=== PATIENT | female | born 1970 | race African-American/Black ===

== ENCOUNTER 2016-09-29 10:10 | Emergency (ER) | payer MEDICARE, MEDICAID ==
[~2016-09-29] VITALS: Ht 162.6 cm; Wt 85.3 kg
[~2016-09-29 10:10] MED LIST: ALBUTEROL SULF8.5 GM INH; ALBUTEROL2.5 MG/3 M HHN; ALBUTEROL2.5 MG/3 M INH; ATROVENT500 MCG/2. HHN; DUONEB 0.5 MG-33 ML IH; FLOVENT2 PUFFS INH; GUAIFENESIN-CO118 M1 ORAL; LEVAQUIN750 MG ORAL; NORCO 5-325 TA1 EACH ORAL; NORCO 5-325 TA1 EACH PO; PREDNISONE20 MG ORAL; PREDNISONE20 MG PO; TYLENOL #31 TAB PO; VICODIN 5-5001 EACH PO; ZITHROMAX250 MG ORAL
[2016-09-29 10:33] VITALS: BP 101/67
[2016-09-29] MEDS ORDERED: Albuterol ud Inhalation HHN ONE ×2 (11:30→12:15)
[2016-09-29] MEDS ORDERED: Acetaminophen 500mg (ES) tab PO ONE (11:30)
[2016-09-29] MEDS ORDERED: Ipratropium 0.02% Inh Soln 2.5ml UD HHN ONE ×2 (11:30→12:15)
[2016-09-29] MEDS ORDERED: PredniSONE 20mg tab ORAL ONE (11:30)
[2016-09-29] MEDS ORDERED: ALBUTEROL SULF8.5 GM INH (12:51)
[2016-09-29] MEDS ORDERED: TRAMADOL HCL50 MG ORAL (12:51)
[2016-09-29] MEDS ORDERED: ALBUTEROL2.5 MG/3 M HHN (12:51)
[2016-09-29] MEDS ORDERED: PREDNISONE20 MG ORAL (12:51)
[2016-09-29 12:57] VITALS: BP 115/75
[2016-09-29] MEDS ORDERED: PROMETHAZINE-C118 M1 ORAL (13:02)
--- NOTE | 2016-09-29 13:09 | Diagnostic Imaging Report ---
Indication: Pain 3 views of the left knee were obtained. Findings: There is minimal joint space narrowing in the medial compartment. Alignment is normal. No joint effusion seen. Impression: Minimal osteoarthritis
--- NOTE | 2016-09-29 15:47 | Emergency Room Report ---
History of Present Illness General Chief Complaint: Upper Respiratory Illness Source: Patient Present Illness HPI 45-year-old female presents ED complaining of cough and wheezing x3 days. Notes history of asthma. Notes cough is dry. Denies fevers or chills. Denies sick contacts or recent travel. States she's been using her inhaler without significant relief. Patient also complaining of bilateral knee pain. Right worse than left. Patient has had this pain for many years now. Was told she has arthritis. Currently not taking any medications. Denies any recent trauma. Pain is a 7/10, throbbing, nonradiating. No other aggravating relieving factors. Denies any other associated symptoms Allergies: Coded Allergies: No Known Allergies (Verified , 10/26/10) Patient History Past Medical History: asthma Past Surgical History: none Pertinent Family History: none Social History: Denies: alcohol use, drug use, smoking Last Menstrual Period: 09/08/16 Now: No Immunizations: UTD Reviewed Nursing Documentation: PMH: Agreed, PSxH: Agreed Nursing Documentation-PMH Past Medical History: No History, Except For Hx Hypertension: No Hx Pacemaker: No Hx Asthma: Yes Hx COPD: No Hx Diabetes: No Hx Cancer: No Hx Gastrointestinal Problems: No Hx Dialysis: No Hx Neurological Problems: No Hx Cerebrovascular Accident: No Hx Seizures: No Hx Vertigo: Yes Hx Headaches: Yes Hx Weakness: Yes Hx Fatigue: Yes Review of Systems All Other Systems: negative except mentioned in HPI Physical Exam Vital Signs Date Time Temp Pulse Resp B/P Pulse Ox O2 Delivery O2 Flow Rate FiO2 09/29/16 10:16 97.5 77 16 101/67 95 09/29/16 11:26 Room Air Sp02 EP Interpretation: reviewed, normal General Appearance: no apparent distress, alert, GCS 15, non-toxic Head: normocephalic, atraumatic Eyes: bilateral eye PERRL, bilateral eye normal inspection ENT: hearing grossly normal, normal pharynx, no angioedema, normal voice Neck: full range of motion, supple/symm/no masses Respiratory: chest non-tender, normal breath sounds, speaking full sentences, wheezing Cardiovascular #1: regular rate, rhythm, no edema Cardiovascular #2: 2+ carotid (R), 2+ carotid (L), 2+ radial (R), 2+ radial (L) , 2+ dorsalis pedis (R), 2+ dorsalis pedis (L) Gastrointestinal: normal bowel sounds, non tender, soft, non-distended, no guarding, no rebound Rectal: deferred Genitourinary: normal inspection, no CVA tenderness Musculoskeletal: back normal, gait/station normal, normal range of motion, tender - bilateral knees. full ROM noted Neurologic: alert, oriented x3, responsive, motor strength/tone normal, sensory intact, speech normal Psychiatric: judgement/insight normal, memory normal, mood/affect normal, no suicidal/homicidal ideation Reflexes: 3+ bicep (R), 3+ bicep (L), 3+ tricep (R), 3+ tricep (L), 3+ knee (R) , 3+ knee (L) Skin: normal color, no rash, warm/dry, well hydrated Lymphatic: no adenopathy Medical Decision Making Diagnostic Impression: Primary Impression: Knee pain Additional Impression: Cough variant asthma ER Course Hospital Course 45-year-old female presents to ED complaining of cough, wheezing. c/o knee pain Differential diagnoses include: URI, bronchitis, asthma/COPD, pneumonia Clinical course Patient placed on stretcher. After initial history and physical I ordered prednisone and nebulizer treatment. I ordered pain medications and x-rays of bilateral knees X-ray show no acute fracture or or process however there is significant joint space narrowing and osteoarthritis noted in both knees Upon reassessment patient states cough and symptoms have improved. Diagnosis - cough variant asthma, knee pain Stable and discharged home with prescriptions for Rx prednisone, tramadol, albuterol, cough syrup. Instructed to followup with PMD. Return to ED if symptoms recur or worsen Other X-Ray Diagnostic Results Other X-Ray Diagnostic Results : X-Ray Ordered: R knee, L knee EP Interpretation: Yes Findings: no fractures, no dislocation, no soft tissue swelling Number of Views: 3 Other Impression Right knee-No fracture, no dislocation, no soft tissue swelling, osteoarthritis Left knee-No fracture, no dislocation, no soft tissue swelling, osteoarthritis Last Vital Signs Date Time Temp Pulse Resp B/P Pulse Ox O2 Delivery O2 Flow Rate FiO2 09/29/16 12:57 97.5 81 16 115/75 95 Room Air Status: improved Disposition: HOME, SELF-CARE Condition: Stable Scripts Codeine/Promethazine Hcl* (PROMETHAZINE-CODEINE SYRUP*) 118 Ml Syrup 5 ML ORAL Q4H Y for For Cough, #118 ML 0 Refills Prov: MALCOLM AMIN M.D. 09/29/16 Tramadol Hcl* (ULTRAM*) 50 Mg Tablet 50 MG ORAL Q6H Y for For Pain, #30 TAB 0 Refills Prov: MALCOLM AMIN M.D. 09/29/16 Prednisone* (PREDNISONE*) 20 Mg Tablet 40 MG ORAL DAILY, #10 TAB Prov: MALCOLM AMIN M.D. 09/29/16 Albuterol Sulfate* (ALBUTEROL SULFATE HHN*) 2.5 Mg/3 Ml Vial.neb 2.5 MG HHN Q4H Y for Shortness of Breath, #25 VIAL Prov: MALCOLM AMIN M.D. 09/29/16 Albuterol Sulfate* (ALBUTEROL SULFATE MDI*) 8.5 Gm Hfa.aer.ad 2 PUFF INH Q4H Y for cough/wheezing, #1 EA 0 Refills Prov: MALCOLM AMIN M.D. 09/29/16 Patient Instructions: Asthma, Adult, [id number] MALCOLM AMIN M.D. September 29, 2016 15:47
--- NOTE | 2016-09-30 16:36 | Diagnostic Imaging Report ---
Indication: Pain 3 views of the right knee were obtained. Findings: No definite fracture is identified. There is narrowing of the joint space with marginal spurs. There maybe a small joint effusion. Impression: Osteoarthritis
== END 2016-09-29 13:06 | disposition home or self-care (01) ==
LOC: EMR 10:56
DX: M17.0 Bilateral primary osteoarthritis of knee (principal); J45.909 Unspecified asthma, uncomplicated; R05 Cough
CPT/HCPCS: 94640; 99284

== ENCOUNTER 2017-04-21 11:11 | Inpatient (IN) | payer MEDICARE, MEDICAID ==
[~2017-04-21] VITALS: Ht 160 cm; Wt 81.6 kg
[~2017-04-21 11:11] MED LIST changes: +PROMETHAZINE-C118 M1 ORAL; +TRAMADOL HCL50 MG ORAL
[2017-04-21 11:27] VITALS: BP 131/91
[2017-04-21] MEDS: Albuterol ud Inhalation HHN SCH ×3 (11:44→12:26)
[2017-04-21] MEDS ORDERED: Ipratropium 0.02% Inh Soln 2.5ml UD HHN ONE (11:45)
[2017-04-21 12:37] LABS: BASOPHILS % (AUTO) 0.7 % (0.0-2.0); EOSINOPHILS % (AUTO) 2.7 % (0.0-3.0); LYMPHOCYTES % (AUTO) 15.7 % (20.0-45.0); MEAN CORPUSCULAR HEMOGLOBIN 30.1 PG (27.0-31.0); MEAN CORPUSCULAR HGB CONC 32.7 G/DL (32.0-36.0); MEAN CORPUSCULAR VOLUME 92 FL (80-99); MEAN PLATELET VOLUME 6.4 FL (6.5-10.1); MONOCYTES % (AUTO) 6.1 % (1.0-10.0); NEUTROPHILS % (AUTO) 74.8 % (45.0-75.0); PLATELET COUNT 515 K/UL (150-450); RED CELL DISTRIBUTION WIDTH 12.9 % (11.6-14.8); WHITE BLOOD COUNT 17.4 K/UL (4.8-10.8)
[2017-04-21 12:40] LABS: INR 0.9 (0.9-1.1); PROTHROMBIN TIME 9.4 SEC (9.30-11.50)
[2017-04-21 12:41] LABS: ANION GAP 7 mmol/L (5-15); CALCIUM 9.3 MG/DL (8.5-10.1); CARBON DIOXIDE 28 MMOL/L (21-32); CHLORIDE 105 MMOL/L (98-107); CREATININE 0.8 MG/DL (0.55-1.30); GLOMERULAR FILTRATION RATE > 60 mL/min (>60); POTASSIUM 3.8 MMOL/L (3.5-5.1); SODIUM 139 MMOL/L (136-145)
[2017-04-21 12:47] LABS: ALANINE AMINOTRANSFERASE 24 U/L (12-78); ALBUMIN/GLOBULIN RATIO 0.9 (1.0-2.7); ASPARTATE AMINO TRANSFERASE 17 U/L (15-37); TOTAL PROTEIN 7.8 G/DL (6.4-8.2)
[2017-04-21 13:20] VITALS: BP 126/75
[2017-04-21 13:30] LABS: APPEARANCE,URINE CLEAR; KETONES,URINE NEGATIVE (NEGATIVE); LEUKOCYTE ESTERASE ,URINE NEGATIVE (NEGATIVE); NITRITE,URINE NEGATIVE (NEGATIVE); PH,URINE 6 (4.5-8.0); PROTEIN,URINE NEGATIVE (NEGATIVE); UROBILINOGEN,URINE NORMAL MG/DL (0.0-1.0)
[2017-04-21] MEDS ORDERED: Azithromycin 500 MG in D5W 275 ML IVPB ONE (13:30)
--- NOTE | 2017-04-21 13:38 | Emergency Room Report ---
History of Present Illness General Chief Complaint: Dyspnea/Respdistress Source: Patient Present Illness HPI Patient presents with severe wheezing. She's run out of her inhaler at home. The patient has a history of asthma. She's not taking prednisone at this time. She's felt weak and feverish. There's some chest pain with coughing. some productive phlegm. This is a severe attack, but not her worst. Never intubated. Denies pain to RN, states pain is 4/10 to me, somewhat pleuritic. No NVD. No dysuria. No calf pain, edema. No rashes. Some headache with cough. Prior smoker, denies at this time. Last admitted 05/12/14 for similar presentation (transferred to [place]). Allergies: Coded Allergies: No Known Allergies (Verified , 10/26/10) Patient History Past Medical History: see triage record Social History: Reports: smoking - prior, alcohol use, Denies: drug use - see tox Social History Narrative at home Reviewed Nursing Documentation: PMH: Agreed, PSxH: Agreed Nursing Documentation-PMH Hx Cardiac Problems: No Hx Hypertension: No Hx Pacemaker: No Hx Asthma: Yes Hx COPD: No Hx Diabetes: No Hx Cancer: No Hx Gastrointestinal Problems: No Hx Dialysis: No History Of Psychiatric Problem: No Hx Neurological Problems: No Hx Cerebrovascular Accident: No Hx Seizures: No Hx Vertigo: Yes Hx Headaches: Yes Hx Weakness: Yes Hx Fatigue: Yes Review of Systems All Other Systems: negative except mentioned in HPI Physical Exam Vital Signs Date Time Temp Pulse Resp B/P (MAP) Pulse Ox O2 Delivery O2 Flow Rate FiO2 04/21/17 11:21 98.1 108 24 131/91 97 Room Air 04/21/17 11:46 21 Sp02 EP Interpretation: reviewed, normal General Appearance: alert, GCS 15, mild distress Head: normocephalic Eyes: bilateral eye normal inspection, bilateral eye PERRL ENT: moist mucus membranes Neck: supple Respiratory: wheezing, expiration, inspiration - worse on R Cardiovascular #1: regular rate, rhythm, no edema Cardiovascular #2: 2+ radial (R) Gastrointestinal: normal inspection, normal bowel sounds, non tender, no mass, non-distended Musculoskeletal: back normal, gait/station normal, normal range of motion, no calf tenderness Neurologic: alert, oriented x3 Psychiatric: depressed affect Skin: normal inspection, warm/dry Medical Decision Making Diagnostic Impression: Primary Impression: Asthma with status asthmaticus Additional Impression: Exposure to cocaine ER Course Patient with mild respiratory distress with h/o asthma. Ddx: pna, asthma, pneumo, bronchitis amongst others. Exam against PE. Emergent evaluation with CXR, EKG and labs. Treatment with solumedrol and beta agents. Consider abx based on results. CXR no infiltrate. Elevated WBC. EKG not injury. Labs significant for + tox for cocaine. Still with wheezing after aggressive tx. Admit teleDr. Watkins. Patient denies drugs. States possibly exposed several days ago. Still wheezing, but improved. Unable to break bronchospasm. She requests rest from breathing treatments. Laboratory Tests Test 04/21/17 11:50 04/21/17 13:15 White Blood Count 17.4 K/UL (4.8-10.8) H Red Blood Count 4.60 M/UL (4.20-5.40) Hemoglobin 13.9 G/DL (12.0-16.0) Hematocrit 42.5 % (37.0-47.0) Mean Corpuscular Volume 92 FL (80-99) Mean Corpuscular Hemoglobin 30.1 PG (27.0-31.0) Mean Corpuscular Hemoglobin Concent 32.7 G/DL (32.0-36.0) Red Cell Distribution Width 12.9 % (11.6-14.8) Platelet Count 515 K/UL (150-450) H Mean Platelet Volume 6.4 FL (6.5-10.1) L Neutrophils (%) (Auto) 74.8 % (45.0-75.0) Lymphocytes (%) (Auto) 15.7 % (20.0-45.0) L Monocytes (%) (Auto) 6.1 % (1.0-10.0) Eosinophils (%) (Auto) 2.7 % (0.0-3.0) Basophils (%) (Auto) 0.7 % (0.0-2.0) Prothrombin Time 9.4 SEC (9.30-11.50) Prothrombin Time INR 0.9 (0.9-1.1) PTT 30 SEC (23-33) Sodium Level 139 MMOL/L (136-145) Potassium Level 3.8 MMOL/L (3.5-5.1) Chloride Level 105 MMOL/L (98-107) Carbon Dioxide Level 28 MMOL/L (21-32) Anion Gap 7 mmol/L (5-15) Blood Urea Nitrogen 10 mg/dL (7-18) Creatinine 0.8 MG/DL (0.55-1.30) Estimate Glomerular Filtration Rate > 60 mL/min (>60) Glucose Level 114 MG/DL (74-106) H Calcium Level 9.3 MG/DL (8.5-10.1) Total Bilirubin 0.1 MG/DL (0.2-1.0) L Aspartate Amino Transferase (AST) 17 U/L (15-37) Alanine Aminotransferase (ALT) 24 U/L (12-78) Alkaline Phosphatase 97 U/L (46-116) Troponin I 0.000 ng/mL (0.000-0.056) Total Protein 7.8 G/DL (6.4-8.2) Albumin 3.7 G/DL (3.4-5.0) Globulin 4.1 g/dL Albumin/Globulin Ratio 0.9 (1.0-2.7) L Urine Color Pale yellow Urine Appearance Clear Urine pH 6 (4.5-8.0) Urine Specific [place] 1.020 (1.005-1.035) Urine Protein Negative (NEGATIVE) Urine Glucose (UA) Negative (NEGATIVE) Urine Ketones Negative (NEGATIVE) Urine Occult Blood Negative (NEGATIVE) Urine Nitrite Negative (NEGATIVE) Urine Bilirubin Negative (NEGATIVE) Urine Urobilinogen Normal MG/DL (0.0-1.0) Urine Leukocyte Esterase Negative (NEGATIVE) Urine Opiates Screen Negative (NEGATIVE) Urine Barbiturates Screen Negative (NEGATIVE) Phencyclidine (PCP) Screen Negative (NEGATIVE) Urine Amphetamines Screen Negative (NEGATIVE) Urine Benzodiazepines Screen Negative (NEGATIVE) Urine Cocaine Screen Positive (NEGATIVE) H Urine Marijuana (THC) Screen Negative (NEGATIVE) Microbiology Date/Time Source Procedure Growth Status 04/21/17 11:50 Nasal Nares Influenza Types A,B Antigen (MATA) - Final Complete EKG Diagnostic Results Rate: normal Rhythm: NSR ST Segments: no acute changes Rhythm Strip Diag. Results EP Interpretation: yes Rhythm: NSR, no PVC's, no ectopy Chest X-Ray Diagnostic Results Chest X-Ray Diagnostic Results : Chest X-Ray Ordered: Yes # of Views/Limited/Complete: 1 View Indication: Chest Pain Interpretation: no consolidation, no effusion, no pneumothorax, no acute cardiopulmonary disease Impression: Other Electronically Signed by: Electronically signed by Sheng Brewer MD Last Vital Signs Date Time Temp Pulse Resp B/P (MAP) Pulse Ox O2 Delivery O2 Flow Rate FiO2 04/21/17 21:29 84 18 Room Air 21 04/21/17 17:18 99 04/21/17 17:08 2.0 04/21/17 15:45 97.8 110/66 Status: improved Disposition: ADMITTED INPATIENT Condition: Serious Referrals: NON PHYSICIAN (PCP) Sheng Brewer M.D. Apr 21, 2017 13:37
[2017-04-21] MEDS ORDERED: Azithromycin 500mg Inj IV ONE (13:42)
--- NOTE | 2017-04-21 13:54 | Diagnostic Imaging Report ---
Indication: Dyspnea Technique: XRAY Chest 1v Comparison: 05/12/2014 Findings: Heart size and mediastinal contours are within normal limits given technique. Question mild peribronchial thickening. There is no focal consolidation, pneumothorax or pleural effusion. Osseous structures demonstrate no acute abnormality. Impression: Question mild peribronchial thickening, a finding which may be reflective of reactive/small airway disease. Correlate clinically. No focal consolidation, pleural effusion or pneumothorax.
[2017-04-21] MEDS ORDERED: Ketorolac 30mg Inj IV PRN (15:00)
[2017-04-21] MEDS ORDERED: Morphine Sulfate 2mg/ml Inj IVP PRN (15:00)
[2017-04-21] MEDS ORDERED: Promethazine/Codeine 5ml UD ORAL PRN (15:00)
[2017-04-21] MEDS ORDERED: LORazepam Inj 2mg/ml 1ml IV PRN (15:00)
[2017-04-21] MEDS ORDERED: Nitroglycerin Subl 0.4mg tab SL PRN (15:15)
[2017-04-21] MEDS ORDERED: ALBUTEROL2.5 MG/3 M INH (15:19)
[2017-04-21 15:45] VITALS: BP 110/66
[2017-04-21] MEDS: Albuterol/Ipratropium 3ml neb HHN PRN (17:10)
[2017-04-21] MEDS: Piperacillin/Tazobactam 3.375 GM in D5W 55 ML IVPB SCH (18:00)
[2017-04-21] MEDS: Solu-MEDROL 125mg Inj IV SCH (18:00)
--- NOTE | 2017-04-21 20:13 | Consultation ---
History of Present Illness General Date patient seen: Apr 21, 2017 Chief Complaint: Dyspnea/Respdistress Reason for Consultation: Shortness of breath Present Illness HPI 46 yo gentle lady with pmhx asthma presents to [facility] with complaints of difficulty breathing, acute wheezing and cough. When asked about any precipitating factors, the patient admits that earlier in the day she was with friends at a "hookah bar", where she engaged in tobacco somiking. The patient states that she went home and later that day began feeling acutely short of breath and having uncontrollable fits of constant un-relenting coughing. The patient also admits to having yellowish sputum production with her cough. No comlaints of fever or chills, no complaint of recent illness. The patient says she tried using her rescue inhaler during her respiratory distress but it was not working for her breathing. I was asked to consult on this case from pulmonary point of view, at this time recommendations include systemic corticosteroids for an apparent severe asthmatic reactive airway process, breathing treatments as needed for SOB and anti-tussives for cough. Allergies: Coded Allergies: No Known Allergies (Verified , 10/26/10) Medication History Scheduled Acetaminophen/Codeine 300MG/30MG* (Tylenol #3*), 1-2 TAB PO Q4H Albuterol Sulfate* (Albuterol Sulfate Mdi*), 2 PUFF INH Q4H Albuterol Sulfate* (Albuterol Sulfate Hhn*), 2.5 MG HHN Q4H Azithromycin* (Zithromax*), 250 MG ORAL DAILY Azithromycin* (Zithromax*), 250 MG ORAL DAILY Fluticasone Propionate (Flovent Hfa), 2 PUFFS INH TWICE A DAY Guaifenesin/Codeine Phos* (Robitussin Ac*), 5 ML ORAL Q6H Hydrocodone Bit/Acetaminophen 5-325* ([place] 5-325*), 1 TAB ORAL Q6H Hydrocodone/Acetaminophen 5-500 (Vicodin 5-500), 1 TAB PO Q8H Ipratropium/Albuterol Sulfate (Duoneb 0.5 Mg-3 Mg/3 Ml Soln), 3 ML IH Q6HR Methylprednisolone* (Medrol*), 4 MG ORAL DAILY Prednisone* (Prednisone*), 20 MG PO DAILY, (Reported) Prednisone* (Prednisone*), 40 MG ORAL DAILY Prednisone* (Prednisone*), 40 MG ORAL DAILY Prednisone* (Prednisone*), 60 MG ORAL DAILY Prednisone* (Prednisone*), 40 MG ORAL DAILY Scheduled PRN Albuterol Sulfate* (Albuterol Sulfate Mdi*), 2 PUFF INH Q6H PRN for asthma Albuterol Sulfate* (Albuterol Sulfate Hhn*), 3 ML INH Q4H PRN for Shortness of Breath Albuterol Sulfate* (Albuterol Sulfate Mdi*), 2 PUFF INH Q4H PRN for cough/ wheezing Albuterol Sulfate* (Albuterol Sulfate Hhn*), 2.5 MG HHN Q4H PRN for Shortness of Breath Codeine/Promethazine Hcl* (Promethazine-Codeine Syrup*), 5 ML ORAL Q4H PRN for For Cough Guaifenesin/Codeine Phosphate (Guaifenesin-Codeine Liquid), 5 ML ORAL Q6H PRN Tramadol Hcl* (Ultram*), 50 MG ORAL Q6H PRN for For Pain Miscellaneous Medications Albuterol Sulfate* (Albuterol Sulfate Hhn*), 0 INH, (Reported) Patient History Healthcare decision maker N Resuscitation status Advanced Directive on File Past Medical/Surgical History Past Medical/Surgical History: (1) Community acquired pneumonia (2) Exacerbation of asthma (3) Tobacco user (4) Bronchitis (5) Community acquired pneumonia (6) tobacco dependence (7) Asthma with status asthmaticus (8) Respiratory distress (9) Cough variant asthma (10) Knee pain (11) Asthma with status asthmaticus Review of Systems Constitutional: Reports: malaise Respiratory: Reports: shortness of breath, wheezing, sputum Physical Exam General Appearance: moderate distress Lines, tubes and drains: peripheral HEENT: normocephalic, atraumatic, anicteric, PERRL Neck: non-tender, normal alignment, supple, normal inspection Respiratory/Chest: chest wall non-tender, respiratory distress, decreased breath sounds, expiratory wheezing, inspiratory wheezing Breasts: no masses Cardiovascular/Chest: normal peripheral pulses, normal rate, regular rhythm, no JVD Abdomen: normal bowel sounds, non tender, soft, no organomegaly, no mass Genitourinary/Rectal: normal genital exam, normal rectal exam Extremities: normal range of motion, non-tender, normal inspection, no calf tenderness, normal capillary refill, non-pitting Skin Exam: normal pigmentation, warm/dry Neurologic: web master II-XII grossly normal, no motor/sensory deficits Last 24 Hour Vital Signs Date Time Temp Pulse Resp B/P (MAP) Pulse Ox O2 Delivery O2 Flow Rate FiO2 04/21/17 17:18 84 18 99 Room Air 21 04/21/17 17:08 86 18 99 Nasal Cannula 2.0 28 04/21/17 17:08 28 04/21/17 15:45 97.8 95 23 110/66 95 Room Air 04/21/17 15:45 98.1 95 23 110/66 95 Room Air 04/21/17 13:20 96 19 126/75 94 Room Air 04/21/17 13:06 98.1 04/21/17 12:20 99 18 99 Room Air 21 04/21/17 11:46 21 04/21/17 11:46 103 24 Room Air 21 04/21/17 11:46 103 20 99 Room Air 21 04/21/17 11:27 98.1 103 22 131/91 96 Room Air 04/21/17 11:27 108 24 Room Air 04/21/17 11:21 98.1 108 24 131/91 97 Room Air Intake and Output 04/21/17 04/22/17 19:00 07:00 Intake Total 1375 ml Balance 1375 ml Intake IV Total 1375 ml # Voids 1 Laboratory Tests Test 04/21/17 11:50 04/21/17 13:15 White Blood Count 17.4 K/UL (4.8-10.8) H Red Blood Count 4.60 M/UL (4.20-5.40) Hemoglobin 13.9 G/DL (12.0-16.0) Hematocrit 42.5 % (37.0-47.0) Mean Corpuscular Volume 92 FL (80-99) Mean Corpuscular Hemoglobin 30.1 PG (27.0-31.0) Mean Corpuscular Hemoglobin Concent 32.7 G/DL (32.0-36.0) Red Cell Distribution Width 12.9 % (11.6-14.8) Platelet Count 515 K/UL (150-450) H Mean Platelet Volume 6.4 FL (6.5-10.1) L Neutrophils (%) (Auto) 74.8 % (45.0-75.0) Lymphocytes (%) (Auto) 15.7 % (20.0-45.0) L Monocytes (%) (Auto) 6.1 % (1.0-10.0) Eosinophils (%) (Auto) 2.7 % (0.0-3.0) Basophils (%) (Auto) 0.7 % (0.0-2.0) Prothrombin Time 9.4 SEC (9.30-11.50) Prothromb Time International Ratio 0.9 (0.9-1.1) Activated Partial Thromboplast Time 30 SEC (23-33) Sodium Level 139 MMOL/L (136-145) Potassium Level 3.8 MMOL/L (3.5-5.1) Chloride Level 105 MMOL/L (98-107) Carbon Dioxide Level 28 MMOL/L (21-32) Anion Gap 7 mmol/L (5-15) Blood Urea Nitrogen 10 mg/dL (7-18) Creatinine 0.8 MG/DL (0.55-1.30) Estimat Glomerular Filtration Rate > 60 mL/min (>60) Glucose Level 114 MG/DL (74-106) H Calcium Level 9.3 MG/DL (8.5-10.1) Total Bilirubin 0.1 MG/DL (0.2-1.0) L Aspartate Amino Transf (AST/SGOT) 17 U/L (15-37) Alanine Aminotransferase (ALT/SGPT) 24 U/L (12-78) Alkaline Phosphatase 97 U/L (46-116) Troponin I 0.000 ng/mL (0.000-0.056) Total Protein 7.8 G/DL (6.4-8.2) Albumin 3.7 G/DL (3.4-5.0) Globulin 4.1 g/dL Albumin/Globulin Ratio 0.9 (1.0-2.7) L Urine Color Pale yellow Urine Appearance Clear Urine pH 6 (4.5-8.0) Urine Specific [place] 1.020 (1.005-1.035) Urine Protein Negative (NEGATIVE) Urine Glucose (UA) Negative (NEGATIVE) Urine Ketones Negative (NEGATIVE) Urine Occult Blood Negative (NEGATIVE) Urine Nitrite Negative (NEGATIVE) Urine Bilirubin Negative (NEGATIVE) Urine Urobilinogen Normal MG/DL (0.0-1.0) Urine Leukocyte Esterase Negative (NEGATIVE) Urine Opiates Screen Negative (NEGATIVE) Urine Barbiturates Screen Negative (NEGATIVE) Phencyclidine (PCP) Screen Negative (NEGATIVE) Urine Amphetamines Screen Negative (NEGATIVE) Urine Benzodiazepines Screen Negative (NEGATIVE) Urine Cocaine Screen Positive (NEGATIVE) H Urine Marijuana (THC) Screen Negative (NEGATIVE) Microbiology Date/Time Source Procedure Growth Status 04/21/17 11:50 Nasal Nares Influenza Types A,B Antigen (MATA) - Final Complete Height (Feet): 5 Height (Inches): 3.00 Weight (Pounds): 180 Medications Current Medications Medications (Trade) Dose Ordered Sig/Doris Route PRN Reason Start Time Stop Time Status Last Admin Dose Admin Albuterol/ Ipratropium (Albuterol/ Ipratropium) 3 ml Q4H PRN HHN dyspnea 04/21/17 15:30 04/26/17 15:29 04/21/17 17:10 Dextrose (Dextrose 50%) STAT PRN IV Hypoglycemia 04/21/17 15:00 05/21/17 14:59 Heparin Sodium (Porcine) (Heparin 5000 units/ml) 5,000 units EVERY 12 HOURS SUBQ 04/21/17 21:00 05/21/17 20:59 Ketorolac Tromethamine (Toradol 30mg) 30 mg Q8H PRN IV Moderate Pain (Pain Scale 4-6) 04/21/17 15:00 04/26/17 14:59 Lorazepam (Ativan 2mg/ml 1ml) 0.5 mg Q4H PRN IV For Anxiety 04/21/17 15:00 04/28/17 14:59 Methylprednisolone Sodium Succinate (Solu-MEDROL) 60 mg EVERY 6 HOURS IV 04/21/17 18:00 05/21/17 17:59 04/21/17 18:00 Morphine Sulfate (Morphine Sulfate) 2 mg Q4H PRN IVP Severe Pain (Pain Scale 7-10) 04/21/17 15:00 04/28/17 14:59 Nitroglycerin (Ntg) 0.4 mg Q5MIN X 3 DOSES PRN SL Prn Chest Pain 04/21/17 15:15 05/21/17 15:14 Ondansetron HCl (Zofran) 4 mg Q6H PRN IVP Nausea & Vomiting 04/21/17 15:00 05/21/17 14:59 Piperacillin Sod/ Tazobactam Sod 3.375 gm/Dextrose 55 ml @ 13.75 mls/ hr EVERY 8 HOURS IVPB 04/21/17 18:00 04/28/17 17:59 04/21/17 18:00 Promethazine HCl/ Codeine (Phenergan with Codeine) 5 ml Q6H PRN ORAL cough 04/21/17 15:00 05/21/17 14:59 Temazepam (Restoril) 15 mg HSPRN PRN ORAL Insomnia 04/21/17 21:00 04/28/17 20:59 Theophylline (Cory-Dur) 100 mg EVERY 12 HOURS ORAL 04/21/17 21:00 05/21/17 20:59 Assessment/Plan Assessment/Plan Status asthmaticus Purulent bronchitis Reactive airway disease history Plan Systemic corticosteroids O2 titrate to keep sat above 92% Pulmonary toilet: CPT and HHN Empiric abx prophylaxis for bronchitis Sputum cx if able Trial of Theophylline Antitussive prn Fup with CXR Influenza screen ANSELMO LEACH Apr 21, 2017 20:13
[2017-04-21] MEDS: Heparin 5000 units/ml inj SUBQ SCH (21:00)
[2017-04-21] MEDS: Theophylline ER 100mg ORAL SCH (21:00)
[2017-04-22] MEDS: Solu-MEDROL 125mg Inj IV SCH ×5 (00:24→23:54)
[2017-04-22 00:28] VITALS: BP 118/92
[2017-04-22 04:00] VITALS: BP 117/77
[2017-04-22] MEDS: Piperacillin/Tazobactam 3.375 GM in D5W 55 ML IVPB SCH ×4 (05:57→21:12)
--- NOTE | 2017-04-22 07:57 | Pulmonology Progress Note ---
Assessment/Plan Assessment/Plan ASSESSMENT Status asthmaticus asthma cocaine abuse leukocytosis PLAN OF CARE O2 titrate to keep sat above 92% pulmonary toilet: CPT and HHN IV steroids and taper as permitted empiric abx sputum cx if able trial of Theophylline a/tussive prn fup with CXR Influenza screen negative admissions counselor on abstinence from street drugs transfer to [facility] floor case discussed and evaluated by supervising physician Subjective Allergies: Coded Allergies: No Known Allergies (Verified , 10/26/10) Subjective reports chest tightness, cough, wheezing, no chest pain, no palpitations reports feeling slightly better today leukocytosis trending down, afebrile Objective Last 24 Hour Vital Signs Date Time Temp Pulse Resp B/P (MAP) Pulse Ox O2 Delivery O2 Flow Rate FiO2 04/22/17 04:00 97.3 94 20 117/77 94 Room Air 04/22/17 04:00 86 04/22/17 00:28 98.0 98 20 118/92 98 Nasal Cannula 04/22/17 00:00 98 04/21/17 21:29 84 18 Room Air 21 04/21/17 20:00 96 04/21/17 17:18 84 18 99 Room Air 21 04/21/17 17:08 86 18 99 Nasal Cannula 2.0 28 04/21/17 17:08 28 04/21/17 15:45 97.8 95 23 110/66 95 Room Air 04/21/17 15:45 98.1 95 23 110/66 95 Room Air 04/21/17 13:20 96 19 126/75 94 Room Air 04/21/17 13:06 98.1 04/21/17 12:20 99 18 99 Room Air 21 04/21/17 11:46 21 04/21/17 11:46 103 24 Room Air 21 04/21/17 11:46 103 20 99 Room Air 21 04/21/17 11:27 98.1 103 22 131/91 96 Room Air 04/21/17 11:27 108 24 Room Air 04/21/17 11:21 98.1 108 24 131/91 97 Room Air General Appearance: no acute distress, other - A/A/O x 3 AA female HEENT: normocephalic, atraumatic, anicteric, mucous membranes moist, EOMI, supple, no JVD Respiratory/Chest: rhonchi - fw at bases , expiratory wheezing - rthroughout all fried Cardiovascular: normal peripheral pulses, normal rate, regular rhythm - SR on tele Abdomen: soft, non tender - obese Genitourinary: normal external genitalia Extremities: no edema Neurologic/Psychiatric: no motor/sensory deficits, alert, oriented x 3, responsive, normal mood/affect Musculoskeletal: normal muscle bulk Microbiology Date/Time Source Procedure Growth Status 04/21/17 11:50 Nasal Nares Influenza Types A,B Antigen (MATA) - Final Complete Laboratory Tests 04/21/17 11:50: White Blood Count 17.4H, Red Blood Count 4.60, Hemoglobin 13.9, Hematocrit 42.5 , Mean Corpuscular Volume 92, Mean Corpuscular Hemoglobin 30.1, Mean Corpuscular Hemoglobin Concent 32.7, Red Cell Distribution Width 12.9, Platelet Count 515H, Mean Platelet Volume 6.4L, Neutrophils (%) (Auto) 74.8, Lymphocytes (%) (Auto) 15.7L, Monocytes (%) (Auto) 6.1, Eosinophils (%) (Auto) 2.7, Basophils (%) (Auto) 0.7, Prothrombin Time 9.4, Prothromb Time International Ratio 0.9, Activated Partial Thromboplast Time 30, Sodium Level 139, Potassium Level 3.8, Chloride Level 105, Carbon Dioxide Level 28, Anion Gap 7, Blood Urea Nitrogen 10, Creatinine 0.8, Estimat Glomerular Filtration Rate > 60, Glucose Level 114H, Calcium Level 9.3, Total Bilirubin 0.1L, Aspartate Amino Transf (AST /SGOT) 17, Alanine Aminotransferase (ALT/SGPT) 24, Alkaline Phosphatase 97, Troponin I 0.000, Total Protein 7.8, Albumin 3.7, Globulin 4.1, Albumin/ Globulin Ratio 0.9L 04/21/17 13:15: Urine Color Pale yellow, Urine Appearance Clear, Urine pH 6, Urine Specific [place] 1.020, Urine Protein Negative, Urine Glucose (UA) Negative, Urine Ketones Negative, Urine Occult Blood Negative, Urine Nitrite Negative, Urine Bilirubin Negative, Urine Urobilinogen Normal, Urine Leukocyte Esterase Negative , Urine Opiates Screen Negative, Urine Barbiturates Screen Negative, Phencyclidine (PCP) Screen Negative, Urine Amphetamines Screen Negative, Urine Benzodiazepines Screen Negative, Urine Cocaine Screen PositiveH, Urine Marijuana (THC) Screen Negative Current Medications Medications (Trade) Dose Ordered Sig/Doris Route PRN Reason Start Time Stop Time Status Last Admin Dose Admin Albuterol/ Ipratropium (Albuterol/ Ipratropium) 3 ml Q4H PRN HHN dyspnea 04/21/17 15:30 04/26/17 15:29 04/21/17 17:10 Dextrose (Dextrose 50%) STAT PRN IV Hypoglycemia 04/21/17 15:00 05/21/17 14:59 Heparin Sodium (Porcine) (Heparin 5000 units/ml) 5,000 units EVERY 12 HOURS SUBQ 04/21/17 21:00 05/21/17 20:59 Ketorolac Tromethamine (Toradol 30mg) 30 mg Q8H PRN IV Moderate Pain (Pain Scale 4-6) 04/21/17 15:00 04/26/17 14:59 Lorazepam (Ativan 2mg/ml 1ml) 0.5 mg Q4H PRN IV For Anxiety 04/21/17 15:00 04/28/17 14:59 Methylprednisolone Sodium Succinate (Solu-MEDROL) 60 mg EVERY 6 HOURS IV 04/21/17 18:00 05/21/17 17:59 04/22/17 05:58 Morphine Sulfate (Morphine Sulfate) 2 mg Q4H PRN IVP Severe Pain (Pain Scale 7-10) 04/21/17 15:00 04/28/17 14:59 04/21/17 23:09 Nitroglycerin (Ntg) 0.4 mg Q5MIN X 3 DOSES PRN SL Prn Chest Pain 04/21/17 15:15 05/21/17 15:14 Ondansetron HCl (Zofran) 4 mg Q6H PRN IVP Nausea & Vomiting 04/21/17 15:00 05/21/17 14:59 Piperacillin Sod/ Tazobactam Sod 3.375 gm/Dextrose 55 ml @ 13.75 mls/ hr EVERY 8 HOURS IVPB 04/21/17 18:00 04/28/17 17:59 04/22/17 05:57 Promethazine HCl/ Codeine (Phenergan with Codeine) 5 ml Q6H PRN ORAL cough 04/21/17 15:00 05/21/17 14:59 04/21/17 23:09 Temazepam (Restoril) 15 mg HSPRN PRN ORAL Insomnia 04/21/17 21:00 04/28/17 20:59 04/22/17 00:24 Theophylline (Cory-Dur) 100 mg EVERY 12 HOURS ORAL 04/21/17 21:00 05/21/17 20:59 04/21/17 21:00 [facility] Apr 22, 2017 07:57
[2017-04-22 08:00] VITALS: BP 114/71
[2017-04-22] MEDS: Albuterol/Ipratropium 3ml neb HHN PRN ×4 (08:01→22:20)
[2017-04-22 08:32] LABS: MEAN CORPUSCULAR HEMOGLOBIN 30.8 PG (27.0-31.0); MEAN CORPUSCULAR HGB CONC 33.2 G/DL (32.0-36.0); MEAN CORPUSCULAR VOLUME 93 FL (80-99); MEAN PLATELET VOLUME 5.7 FL (6.5-10.1); PLATELET COUNT 475 K/UL (150-450); RED BLOOD COUNT 4.21 M/UL (4.20-5.40); RED CELL DISTRIBUTION WIDTH 12.8 % (11.6-14.8); WHITE BLOOD COUNT 12.8 K/UL (4.8-10.8)
[2017-04-22 08:42] LABS: ANION GAP 6 mmol/L (5-15); CALCIUM 9.4 MG/DL (8.5-10.1); CARBON DIOXIDE 27 MMOL/L (21-32); CHLORIDE 106 MMOL/L (98-107); CREATININE 0.7 MG/DL (0.55-1.30); GLOMERULAR FILTRATION RATE > 60 mL/min (>60); POTASSIUM 4.3 MMOL/L (3.5-5.1); SODIUM 139 MMOL/L (136-145)
[2017-04-22] MEDS: Theophylline ER 100mg ORAL SCH ×2 (08:55→21:08)
[2017-04-22 08:57] LABS: BAND NEUTROPHILS % (MANUAL) 0 % (0-8); BASOPHILS % (MANUAL) 0 % (0-2); EOSINOPHILS % (MANUAL) 1 % (0-3); LYMPHOCYTES % (MANUAL) 11 % (20-45); NEUTROPHILS % (MANUAL) 87 % (45-75); PLATELET ESTIMATE ADEQUATE; PLATELET MORPHOLOGY NORMAL; TOTAL CELLS COUNTED 100
[2017-04-22] MEDS: Heparin 5000 units/ml inj SUBQ SCH ×2 (08:57→21:11)
[2017-04-22 12:00] VITALS: BP 120/74
--- NOTE | 2017-04-22 12:03 | Diagnostic Imaging Report ---
Indication: Shortness of breath Technique: One view of the chest Comparison: none Findings: Lungs and pleural spaces are clear. Heart size is normal. Is mild central bronchial wall thickening persists. No significant change Impression: No acute process
[2017-04-22 15:35] VITALS: BP 119/69
[2017-04-22] MEDS ORDERED: Nitroglycerin Subl 0.4mg tab SL PRN (16:45)
[2017-04-22] MEDS ORDERED: Ketorolac 30mg Inj IV PRN (17:00)
[2017-04-22] MEDS ORDERED: Promethazine/Codeine 5ml UD ORAL PRN (17:00)
[2017-04-22] MEDS ORDERED: Morphine Sulfate 2mg/ml Inj IVP PRN (17:00)
[2017-04-22] MEDS ORDERED: LORazepam Inj 2mg/ml 1ml IV PRN (17:00)
[2017-04-22 20:00] VITALS: BP 126/71
--- NOTE | 2017-04-22 20:03 | History & Physical ---
History and Physical History & Physicial Dictated for Int Med-Dr Watkins no. [id number]. MARIA ISABEL ZHAO Apr 22, 2017 20:03
--- NOTE | 2017-04-22 23:01 | History and Physical Report ---
DATE OF ADMISSION: 04/21/2017 CHIEF COMPLAINT: The patient is a 46-year-old female, who presents with chief complaint of cough and wheezing. HISTORY OF PRESENT ILLNESS: Present illness began two days prior to admission. The patient has history of asthma. The patient went to [place]. The patient began to feel like she was having an asthma attack. The patient continued to have cough productive of yellowish sputum. The patient also has some wheezing. The patient tried use her inhaler without relief. The patient presented to [facility]. The patient was admitted for status asthmaticus and purulent bronchitis. REVIEW OF SYSTEMS: CONSTITUTIONAL: The patient denies weight loss or weight gain. The patient denies fevers or chills. HEENT: The patient denies ear or throat pain. The patient denies headache. CARDIOVASCULAR: The patient denies palpitations or chest pain. CHEST: The patient complains of cough as above. The patient complains of wheeze as above. ABDOMINAL: The patient denies nausea, vomiting, diarrhea, or constipation. GENITOURINARY: The patient denies dysuria or increased frequency of urination. NEUROMUSCULAR: The patient denies seizures or generalized weakness. PAST MEDICAL HISTORY: Significant for asthma. PAST SURGICAL HISTORY: The patient denies. CURRENT MEDICATIONS: 1. Tylenol No. 3 with Codeine one tablet p.o. q.4 hours p.r.n. 2. Albuterol metered-dose inhaler two puffs p.o. q.i.d. p.r.n. 3. Albuterol 2.5 mg nebulized q.4 h. p.r.n. 4. Codeine With Promethazine 1 teaspoon p.o. q.4 hours p.r.n. 5. Flovent 110 2 puffs p.o. twice daily. 6. DuoNeb nebulized q.4 h. p.r.n. 7. Tramadol 50 mg p.o. q.6 hours p.r.n. ALLERGIES: No known drug allergies. SOCIAL HISTORY: The patient is . The patient denies tobacco use having quit 1 year previously. The patient denies alcohol use. The patient is a homemaker. PHYSICAL EXAMINATION: VITAL SIGNS: Temperature 97.7, respirations 22, pulse 97, and blood pressure 120/74. GENERAL: The patient is a well-developed, well-nourished female, in no apparent distress. HEENT: Eyes, pupils equal and responsive to light and accommodation. Extraocular movements are intact. NECK: Supple without lymphadenopathy. CHEST: Diffuse expiratory wheezes in bilateral lung fried with good air movement, otherwise without rales. CARDIOVASCULAR: Regular rhythm and rate. S1, S2 normal without murmurs, rubs, or gallops. ABDOMEN: Soft, nontender, nondistended. Positive bowel sounds. No hepatosplenomegaly. Currently, no rebound or guarding noted. EXTREMITIES: Negative for clubbing, cyanosis, or edema. RECTAL: Refused. GENITAL: Refused. NEUROLOGIC: Cranial nerves II through XII are grossly intact without focal deficits. Motor strength is 5/5 bilaterally intact. Deep tendon reflexes are 2+, plantar. LABORATORY STUDIES: WBC 17.4, hemoglobin 13.9, hematocrit 42.5, and platelets 550,000. Sodium 139, potassium 3.8, chloride 105, CO2 28, BUN 10, creatinine 0.8, glucose 114. A chest x-ray is reported as mild peribronchial thickening consistent with bronchitis. ASSESSMENT: This is a 46-year-old female with: 1. Asthma, acute exacerbation. 2. Status asthmaticus. 3. Leukocytosis. 4. Bronchitis. TREATMENT: Asthma exacerbation/status asthmaticus. Pulmonary consultation has been obtained with Dr. Sloan Olivo. The patient has been started empirically on Zosyn for purulent bronchitis. The patient has also been started on . The patient is currently receiving Solu-Medrol intravenously q.6 hours. We will follow recommendations of pulmonary. Cedric Ye M.D. DR: Rocio JOB#: [id number] CC:
[2017-04-23 04:00] VITALS: BP 146/89
[2017-04-23] MEDS: Piperacillin/Tazobactam 3.375 GM in D5W 55 ML IVPB SCH ×2 (05:30→05:31)
[2017-04-23] MEDS: Solu-MEDROL 125mg Inj IV SCH ×2 (05:31→12:58)
[2017-04-23 07:54] LABS: MEAN CORPUSCULAR HEMOGLOBIN 31.1 PG (27.0-31.0); MEAN CORPUSCULAR HGB CONC 33.4 G/DL (32.0-36.0); MEAN CORPUSCULAR VOLUME 93 FL (80-99); MEAN PLATELET VOLUME 5.8 FL (6.5-10.1); PLATELET COUNT 494 K/UL (150-450); RED BLOOD COUNT 4.15 M/UL (4.20-5.40); WHITE BLOOD COUNT 21.6 K/UL (4.8-10.8)
[2017-04-23 08:00] VITALS: BP 144/84
[2017-04-23] MEDS: Albuterol/Ipratropium 3ml neb HHN PRN (08:20)
[2017-04-23 08:22] LABS: ANION GAP 8 mmol/L (5-15); CALCIUM 9.6 MG/DL (8.5-10.1); CARBON DIOXIDE 28 MMOL/L (21-32); CHLORIDE 108 MMOL/L (98-107); CREATININE 0.8 MG/DL (0.55-1.30); GLOMERULAR FILTRATION RATE > 60 mL/min (>60); SODIUM 144 MMOL/L (136-145)
[2017-04-23] MEDS: Theophylline ER 100mg ORAL SCH (08:45)
[2017-04-23] MEDS: Heparin 5000 units/ml inj SUBQ SCH (08:46)
[2017-04-23 10:13] LABS: BAND NEUTROPHILS % (MANUAL) 2 % (0-8); BASOPHILS % (MANUAL) 0 % (0-2); EOSINOPHILS % (MANUAL) 0 % (0-3); LYMPHOCYTES % (MANUAL) 10 % (20-45); NEUTROPHILS % (MANUAL) 83 % (45-75); PLATELET ESTIMATE INCREASED; PLATELET MORPHOLOGY NORMAL; TOTAL CELLS COUNTED 100
--- NOTE | 2017-04-23 10:23 | Pulmonology Progress Note ---
Assessment/Plan Assessment/Plan ASSESSMENT Status asthmaticus -resolved asthma cocaine abuse leukocytosis -reactive PLAN OF CARE O2 titrate to keep sat above 92% pulmonary toilet: CPT and HHN IV steroids and taper as permitted empiric abx sputum cx if able trial of Theophylline a/tussive prn fup with CXR Influenza screen negative leucocytosis likely reactive 2 to steroids, afebrile, no evidence of infections fup CXR negative will continue on empiric abx upon dc education counselor on abstinence from street drugs stable for dc scripts provided case discussed and evaluated by supervising physician Subjective Allergies: Coded Allergies: No Known Allergies (Verified , 10/26/10) Subjective feeling better, chest tightness resoled, afebrile, leukocytosis less cough, wheezing significantly improved no chest pain, no palpitations Objective Last 24 Hour Vital Signs Date Time Temp Pulse Resp B/P (MAP) Pulse Ox O2 Delivery O2 Flow Rate FiO2 04/23/17 08:30 90 18 100 Room Air 21 04/23/17 08:21 87 20 97 Room Air 21 04/23/17 08:21 87 18 Room Air 21 04/23/17 08:00 98.2 93 20 144/84 96 04/23/17 04:00 96.4 90 22 146/89 95 Room Air 04/22/17 22:30 103 18 99 Room Air 21 04/22/17 22:20 92 20 96 Room Air 21 04/22/17 21:50 103 18 Room Air 21 04/22/17 20:00 97.8 97 21 126/71 94 Room Air 04/22/17 16:00 120 04/22/17 15:35 97.7 93 18 119/69 100 04/22/17 15:30 93 20 100 Room Air 21 04/22/17 15:20 90 20 99 Room Air 21 04/22/17 12:00 93 04/22/17 12:00 97.1 97 22 120/74 92 04/22/17 11:50 90 20 98 Room Air 21 04/22/17 11:35 87 20 98 Room Air 21 Objective General Appearance: no acute distress, A/A/O x 3 AA female HEENT: normocephalic, atraumatic, anicteric, mucous membranes moist, EOMI, supple, no JVD Respiratory/Chest: few scattered exp wheezes, Cardiovascular: normal peripheral pulses, normal rate, Abdomen: soft, non tender , obese Genitourinary: normal external genitalia Extremities: no edema Neurologic/Psychiatric: no motor/sensory deficits, alert, oriented x 3, responsive, normal mood/affect Musculoskeletal: normal muscle bulk Microbiology Date/Time Source Procedure Growth Status 04/21/17 11:50 Nasal Nares Influenza Types A,B Antigen (MATA) - Final Complete Laboratory Tests 04/23/17 06:40: White Blood Count 21.6#H, Red Blood Count 4.15L, Hemoglobin 12.9, Hematocrit 38.5, Mean Corpuscular Volume 93, Mean Corpuscular Hemoglobin 31.1H, Mean Corpuscular Hemoglobin Concent 33.4, Red Cell Distribution Width 13.0, Platelet Count 494H, Mean Platelet Volume 5.8L, Neutrophils (%) (Auto) , Lymphocytes (%) (Auto) , Monocytes (%) (Auto) , Eosinophils (%) (Auto) , Basophils (%) (Auto) , Differential Total Cells Counted 100, Neutrophils % (Manual) 83H, Lymphocytes % (Manual) 10L, Monocytes % (Manual) 5, Eosinophils % (Manual) 0, Basophils % ( Manual) 0, Band Neutrophils 2, Platelet Estimate IncreasedH, Platelet Morphology Normal, Red Blood Cell Morphology Normal, Sodium Level 144, Potassium Level 4.0, Chloride Level 108H, Carbon Dioxide Level 28, Anion Gap 8, Blood Urea Nitrogen 16, Creatinine 0.8, Estimat Glomerular Filtration Rate > 60 , Glucose Level 161H, Calcium Level 9.6 Current Medications Medications (Trade) Dose Ordered Sig/Drois Route PRN Reason Start Time Stop Time Status Last Admin Dose Admin Albuterol/ Ipratropium (Albuterol/ Ipratropium) 3 ml Q4H PRN HHN dyspnea 04/22/17 17:00 04/26/17 16:59 04/23/17 08:20 Dextrose (Dextrose 50%) STAT PRN IV Hypoglycemia 04/22/17 17:00 05/22/17 16:59 Heparin Sodium (Porcine) (Heparin 5000 units/ml) 5,000 units EVERY 12 HOURS SUBQ 04/22/17 21:00 05/21/17 20:59 04/23/17 08:46 Ibuprofen (Motrin) 600 mg Q6H PRN ORAL Mild Pain (Pain Scale 1-3) 04/22/17 20:00 05/22/17 19:59 04/22/17 21:09 Ketorolac Tromethamine (Toradol 30mg) 30 mg Q8H PRN IV Moderate Pain (Pain Scale 4-6) 04/22/17 17:00 04/26/17 16:59 Lorazepam (Ativan 2mg/ml 1ml) 0.5 mg Q4H PRN IV For Anxiety 04/22/17 17:00 04/28/17 16:59 Methylprednisolone Sodium Succinate (Solu-MEDROL) 60 mg EVERY 6 HOURS IV 04/22/17 18:00 05/21/17 17:59 04/23/17 05:31 Morphine Sulfate (Morphine Sulfate) 2 mg Q4H PRN IVP Severe Pain (Pain Scale 7-10) 04/22/17 17:00 04/28/17 16:59 Nitroglycerin (Ntg) 0.4 mg Q5MIN X 3 DOSES PRN SL Prn Chest Pain 04/22/17 16:45 05/21/17 15:14 Ondansetron HCl (Zofran) 4 mg Q6H PRN IVP Nausea & Vomiting 04/22/17 17:00 05/21/17 16:59 Piperacillin Sod/ Tazobactam Sod 3.375 gm/Dextrose 55 ml @ 13.75 mls/ hr EVERY 8 HOURS IVPB 04/22/17 22:00 04/29/17 21:59 04/23/17 05:31 Promethazine HCl/ Codeine (Phenergan with Codeine) 5 ml Q6H PRN ORAL cough 04/22/17 17:00 05/21/17 16:59 04/23/17 01:11 Temazepam (Restoril) 15 mg HSPRN PRN ORAL Insomnia 04/22/17 21:00 04/28/17 20:59 04/22/17 21:09 Theophylline (Cory-Dur) 100 mg EVERY 12 HOURS ORAL 04/22/17 21:00 05/21/17 20:59 04/23/17 08:45 [facility] NP Apr 23, 2017 10:23
[2017-04-23] MEDS ORDERED: GUAIFENESIN-CO118 ML ORAL (10:29)
[2017-04-23] MEDS ORDERED: MEDROL4 MG ORAL (10:29)
[2017-04-23] MEDS ORDERED: AZITHROMYCIN250 MG ORAL (10:29)
[2017-04-23 12:00] VITALS: BP 144/108
--- NOTE | 2017-04-23 20:36 | Discharge Summary ---
Discharge Summary Hospital Course Date of Admission Apr 21, 2017 at 14:04 Date of Discharge Apr 23, 2017 at 13:30 Admitting Diagnosis asthmaticus HPI Teri Rosa is a 46 year old female who was admitted on Apr 21, 2017 at 14:04 for Asthmaticus Hospital Course Discharge Discharge Disposition Patient was discharged to Home (01) Discharge Diagnoses: Ciro Watkins MD Apr 23, 2017 20:36
--- NOTE | 2017-04-23 21:15 | Discharge Summary ---
DATE OF ADMISSION: 04/21/2017 DATE OF DISCHARGE: 04/23/2017 HISTORY: The patient is a 46-year-old female with past medical history significant for asthma who presented to the hospital complaining of shortness of breath and wheezes. Shortly after initial evaluation, the patient was admitted to the hospital with acute asthma exacerbation. Throughout the hospital course, the patient will follow up with Dr. Olivo from Pulmonary Critical Care. The patient's status gradually improved, was able to comfortable, mobilized without exacerbation, without pain and subsequently, the patient was discharged home today and to be followed as outpatient. FINAL DIAGNOSES: 1. Status asthmatica. 2. Asthma. 3. Cocaine abuse. 4. Leukocytosis, reactive. MEDICATION ON DISCHARGE: Continue discharge medication list. ACTIVITY: As tolerated. DIET: Regular diet. FOLLOWUP: The patient was advised to follow up with the primary doctor within one week. Ciro Watkins M.D. DR: DELANEY JOB#: [id number] CC:
--- NOTE | 2017-04-24 14:46 | Cardiology Report ---
APPROVED REPORT EKG Measurement Heart [id number] MD [id number] Normal sinus rhythm Normal ECG
== END 2017-04-23 13:30 | disposition home or self-care (01) | DRG 203 ==
LOC: EMR 11:35 → EDBEDREQSVC 13:25 → 2E 14:04 → EDBEDREQ 14:53 → 4E 04-22 16:55
DX: J45.902 Unspecified asthma with status asthmaticus (principal); F14.10 Cocaine abuse, uncomplicated; Z87.891 Personal history of nicotine dependence
CPT/HCPCS: 36415; 71010; 80048; 80053; 80307; 81003; 84484; 85007; 85025; 85610; 85730; 86710; 87070; 87205; 93005; 94640; 94664; 99285; J7620